=== PATIENT | female | born 1990 ===

== ENCOUNTER 2016-07-11 19:49 | Emergency (ER) | payer MEDICAID ==
[2016-07-11 19:50] VITALS: BMI 35.9
[2016-07-11 19:58] VITALS: BP 121/52; PULSE 91; RESP 16; TEMP 98; O2SAT 100
[2016-07-11 20:54] LABS: BASO # 0.1 K/uL (0.0-0.2); BASO % 0.7 % (0.0-2.0); EOS # 0.1 K/uL (0.0-0.7); EOS % 1.4 % (0.0-4.0); HEMATOCRIT 37.5 % (34.0-47.0); LYMPH # 2.2 K/uL (1.0-4.3); LYMPH % 25.6 % (20.0-40.0); MEAN CELL VOLUME 86.7 fl (81.0-99.0); MEAN CORPUSCULAR HEMOGLOBIN 28.2 pg (27.0-31.0); MEAN CORPUSCULAR HGB CONC 32.6 g/dL (33.0-37.0); MEAN PLATELET VOLUME 9.1 fl (7.2-11.7); MONO # 0.7 K/uL (0.0-0.8); MONO % 8.4 % (0.0-10.0); NEUT # 5.4 K/uL (1.8-7.0); NEUT % 63.9 % (50.0-75.0); WHITE BLOOD COUNT 8.4 K/uL (4.8-10.8)
[2016-07-11 20:57] LABS: RBC URINE 2 /hpf (0-3); URINE BILIRUBIN NEGATIVE (NEGATIVE); URINE BLOOD NEGATIVE (NEGATIVE); URINE COLOR YELLOW (YELLOW); URINE GLUCOSE (UA) NEG (Normal); URINE KETONE NEGATIVE (NEGATIVE); URINE LEUKOCYTE ESTERASE NEG Leu/uL (Negative); URINE PROTEIN NEGATIVE (NEGATIVE); URINE UROBILINOGEN 0.2-1.0 mg/dL (0.2-1.0); WBC URINE 2 /hpf (0-5)
[2016-07-11 21:03] LABS: ALB/GLOB RATIO 1.1 (1.0-2.1); ALKALINE PHOSPHATASE 80 U/L (38-126); ALT/SGPT 30 U/L (9-52); AST/SGOT 42 U/L (14-36); BILIRUBIN,TOTAL 0.9 mg/dl (0.2-1.3); BLOOD UREA NITROGEN 15 mg/dl (7-17); CALCIUM 9.2 mg/dL (8.4-10.2); CARBON DIOXIDE 20 mmol/L (22-30); CHLORIDE 105 mmol/L (98-107); GFR AFRICAN-AMERICAN > 60; GLUCOSE,RANDOM 94 mg/dL (65-105); POTASSIUM 4.4 MMOL/L (3.6-5.0); SODIUM 140 mmol/l (132-148); TOTAL PROTEIN 7.6 G/DL (6.3-8.2)
--- NOTE | 2016-07-11 21:58 | ED PDOC ---
HPI: Abdomen Time Seen by Provider: 07/11/16 20:03 Chief Complaint (Nursing): Abdominal Pain Chief Complaint (Provider): Abdominal Pain History Per: Patient History/Exam Limitations: no limitations Onset/Duration Of Symptoms: Days (2) Current Symptoms Are (Timing): Still Present Severity: Moderate Quality Of Discomfort: "Pain" Additional Complaint(s): Loree Harrington is a 25 y/o female, with a past medical history of pre-Diabetes Mellitus and (;P:1;EGA-4 weeks), presenting to the ER on 07/11/2016 with complaints of abdominal pain x2 days. Patient reports taking a home- test two days ago, which was found to be positive for . Pain, localized to her lower abdomen with radiation to her lower back, is associated with nausea. Patient denies any vomiting, diarrhea, fever, cough, urinary symptoms, vaginal bleeding/discharge or Shortness of Breath. Of note, patient has been taking Metformin instructed by her Turn Machine Operator for her recently diagnosed pre-diabetes. Past Medical History Reviewed: Historical Data, Nursing Documentation, Vital Signs Vital Signs: Last Vital Signs Temp 98.0 F 07/11/16 19:55 Pulse 91 H 07/11/16 19:55 Resp 16 07/11/16 19:55 BP 121/52 L 07/11/16 19:55 Pulse Ox 100 07/11/16 22:01 - Medical History PMH: Arthritis, Asthma, Bipolar Disorder, Depression, Gastritis Denies: Chronic Kidney Disease Other PMH: pre-diabetes - Surgical History Surgical History: (x1) - Family History Family History: States: CAD (mom) - Social History Current smoker - smoking cessation education provided: No Ex-Smoker (has not smoked in the last 12 months): No Alcohol: None Drugs: Denies - Immunization History Hx Tetanus Toxoid Vaccination: No Hx Influenza Vaccination: No Hx Pneumococcal Vaccination: No - Home Medications Home Medications: Ambulatory Orders Medication Instructions Recorded 1 tab PO DAILY 04/11/13 Albuterol Sulfate [Albuterol 3 ml IH Q6H #100 esther 09/28/13 Sulfate 3 ml] DiphenhydrAMINE [Benadryl] 25 mg PO Q6H #20 cap 09/28/13 Prednisone 2 tab PO DAILY #10 tab 09/28/13 Albuterol HFA [Ventolin HFA 90 2 puff IH Q4H #1 puff 05/09/15 mcg/actuation (8 g)] Amoxicillin/Potassium Clav 1 tab PO TID #30 tab 05/09/15 [Augmentin 500 mg-125 mg] Methylprednisolone [Medrol Dose 4 mg PO DAILY #21 tab 05/09/15 Pack (21 tabs)] Cephalexin [Keflex] 1 tab PO Q6 #28 capsule 05/12/16 Naproxen [Naprosyn Tab] 375 mg PO Q8 PRN #21 tab 05/12/16 Sulfamethoxazole/Trimethoprim 2 tab PO BID #28 tab 05/12/16 [Bactrim DS 800 mg-160 mg] - Allergies Allergies/Adverse Reactions: Allergies Allergy/AdvReac Type Severity Reaction Status Date / Time No Known Allergies Allergy Verified 12/06/14 17:49 Review of Systems ROS Statement: Except As Marked, All Systems Reviewed And Found Negative Constitutional: Negative for: Fever Cardiovascular: Negative for: Chest Pain Respiratory: Negative for: Cough, Shortness of Breath Gastrointestinal: Positive for: Nausea, Abdominal Pain. Negative for: Vomiting , Diarrhea Genitourinary Female: Negative for: Dysuria, Frequency, Incontinence, Vaginal Discharge, Vaginal Bleeding Physical Exam - Reviewed Nursing Documentation Reviewed: Yes Vital Signs Reviewed: Yes - Physical Exam Appears: Positive for: Non-toxic, No Acute Distress Head Exam: Positive for: ATRAUMATIC, NORMOCEPHALIC Skin: Positive for: Normal Color, Warm, Dry Eye Exam: Positive for: Normal appearance, EOMI, PERRL Neck: Positive for: Normal, Painless ROM, Supple Cardiovascular/Chest: Positive for: Regular Rate, Rhythm. Negative for: Murmur Respiratory: Positive for: Normal Breath Sounds. Negative for: Respiratory Distress Gastrointestinal/Abdominal: Positive for: Normal Exam, Soft. Negative for: Tenderness, Mass, Distended, Guarding, Rebound Extremity: Positive for: Normal ROM. Negative for: Deformity Neurologic/Psych: Positive for: Alert, Oriented. Negative for: Motor/Sensory Deficits - Laboratory Results Result Diagrams: 07/11/16 20:45 07/11/16 20:45 - ECG O2 Sat by Pulse Oximetry: 100 Medical Decision Making Medical Decision Makin:03 Initial Impression- 25 y/o female with abdominal pain and early . Initial Plan- * Urine Preg * Urine Dip * Accucheck * US (OB Transvaginal ) * Reevaluation 23:47 US OB Transvaginal Results FINDINGS: Gestation: A single intrauterine gestational sac is identified, too young for dates. No pole or yolk sac is detected. Placenta/amniotic fluid: Cannot be adequately evaluated due to the early gestational age. Uterus/cervix: The uterus is retroverted, and otherwise unremarkable measuring 6.3 x 3.6 x 4.6 cm. The endometrium measures 14 mm. The cervix measures 3.3 cm. Ovaries: The right ovary is increased in size measuring 4.3 x 2.1 x 2.8 cm. A 15 mm complex cyst is detected, with otherwise benign features. The left ovary is unremarkable in size measuring 2.8 x 1.0 x 2.4 cm. A 10 mm simple parovarian cyst is detected. Normal flow is noted bilaterally. Free fluid: No free fluid. IMPRESSION: Single intrauterine gestational sac, too young for dates. Short-term followup and serial beta hCG is suggested. 23:47 Lab results reviewed. No significant abnormalities. 23:52 Upon provider reevaluation patient is feeling better, is medically stable, and requires no further treatment in the ED at this time. Patient will be discharged home. Counseling was provided and all questions were answered regarding diagnosis. 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 There is agreement to discharge plan. Return if symptoms persist or worsen. Clinical Impression: Abdominal pain during Documented by Gonzalez Haas and Aaron Robb, acting as a scribe for Jeremias Martinez MD. All medical record entries made by the Scribe were at my direction and personally dictated by me. I have reviewed the chart and agree that the record accurately reflects my personal performance of the history, physical exam, medical decision making, and the department course for this patient. I have also personally directed, reviewed, and agree with the discharge instructions and disposition. Disposition - Clinical Impression Clinical Impression: Abdominal pain during - Patient ED Disposition Is Patient to be Admitted: No - Disposition Disposition: Routine/Home Disposition Time: 23:52 Condition: STABLE Additional Instructions: Ally tomando el Metformin Sigue con whitney Ginecologo en 2 feliciano Instructions: Abdominal Pain in (ED)
--- NOTE | 2016-07-11 22:21 | US ---
EXAM: US , Transvaginal CLINICAL HISTORY: 25 years old, female; Pain; Other: Pelvic pain; Gestational age or lmp: 06/12/16; ; Additional info: Preg vag bld. Beta-hCG 498. TECHNIQUE: Real-time transvaginal obstetrical ultrasound of the maternal pelvis and a first trimester with image documentation. Transvaginal imaging was used for better evaluation of the fetus and adnexa. EXAM DATE/TIME: 07/11/2016 8:14 PM COMPARISON: No relevant prior studies available. FINDINGS: Gestation: A single intrauterine gestational sac is identified, too young for dates. No pole or yolk sac is detected. Placenta/amniotic fluid: Cannot be adequately evaluated due to the early gestational age. Uterus/cervix: The uterus is retroverted, and otherwise unremarkable measuring 6.3 x 3.6 x 4.6 cm. The endometrium measures 14 mm. The cervix measures 3.3 cm. Ovaries: The right ovary is increased in size measuring 4.3 x 2.1 x 2.8 cm. A 15 mm complex cyst is detected, with otherwise benign features. The left ovary is unremarkable in size measuring 2.8 x 1.0 x 2.4 cm. A 10 mm simple parovarian cyst is detected. Normal flow is noted bilaterally. Free fluid: No free fluid. IMPRESSION: Single intrauterine gestational sac, too young for dates. Short-term followup and serial beta hCG is suggested.
== END 2016-07-11 23:49 | disposition home or self-care (01) ==
LOC: H.ER 19:49
DX: O26.891 Other specified pregnancy related conditions, first trimester (principal); R10.2 Pelvic and perineal pain; R73.03 Prediabetes; J45.909 Unspecified asthma, uncomplicated; Z87.891 Personal history of nicotine dependence; Z86.59 Personal history of other mental and behavioral disorders

== ENCOUNTER 2017-04-18 09:50 | Emergency (ER) | payer MEDICAID, OTHER ==
--- NOTE | 2017-04-18 10:34 | ED PDOC ---
HPI: General Adult Time Seen by Provider: 04/18/17 10:29 Chief Complaint (Provider): chest pain History Per: Patient Additional Complaint(s): 26-year-old female status post 1 month ago presents to emergency department with chest pain and shortness of breath that started last night. Patient states pain is midsternal and worse with inspiration. Patient does have history of asthma but she states this does not feel at her typical asthma symptoms. She denies fever or chills, no coughing. Patient is slight nausea with no vomiting or diarrhea. Dr. Fishman Past Medical History Reviewed: Historical Data Vital Signs: Last Vital Signs Temp 97.0 F L 04/18/17 11:20 Pulse 60 04/18/17 11:30 Resp 16 04/18/17 11:20 BP 132/84 04/18/17 11:30 Pulse Ox 100 04/18/17 14:26 - Medical History PMH: Arthritis, Asthma, Bipolar Disorder, Depression, Diabetes, Gastritis, HTN - Surgical History Surgical History: (x 2) Other surgeries: tubal ligation - Family History Family History: States: CAD (mom) - Living Arrangements Living Arrangements: With Family - Social History Current smoker - smoking cessation education provided: No Alcohol: None Drugs: Denies - Home Medications Home Medications: Ambulatory Orders Medication Instructions Recorded 1 tab PO DAILY 04/11/13 Albuterol HFA [Ventolin HFA 90 2 puff IH Q4H #1 puff 05/09/15 mcg/actuation (8 g)] guaiFENesin [guaifENESIN] 200 mg PO PRN PRN 07/25/16 Albuterol HFA [Ventolin HFA 90 1 puff IH ASDIR #1 unit 04/18/17 mcg/actuation (8 g)] predniSONE [Prednisone] 20 mg PO BID #10 tab 04/18/17 - Allergies Allergies/Adverse Reactions: Allergies Allergy/AdvReac Type Severity Reaction Status Date / Time No Known Allergies Allergy Verified 07/25/16 08:22 Review of Systems ROS Statement: Except As Marked, All Systems Reviewed And Found Negative Constitutional: Negative for: Fever, Chills Cardiovascular: Positive for: Chest Pain. Negative for: Palpitations, Light Headedness Respiratory: Positive for: Shortness of Breath, SOB with Exertion, Pleuritic Pain. Negative for: Cough, Hemoptysis, Wheezing Gastrointestinal: Positive for: Nausea. Negative for: Vomiting, Abdominal Pain , Diarrhea Genitourinary Female: Negative for: Dysuria Neurological: Negative for: Headache, Dizziness Physical Exam - Reviewed Nursing Documentation Reviewed: Yes Vital Signs Reviewed: Yes - Physical Exam Appears: Positive for: Well, Non-toxic, No Acute Distress Skin: Negative for: Pallor, Rash Eye Exam: Positive for: Normal appearance Neck: Positive for: Normal Cardiovascular/Chest: Positive for: Regular Rate, Rhythm Respiratory: Positive for: Normal Breath Sounds. Negative for: Respiratory Distress Gastrointestinal/Abdominal: Positive for: Soft. Negative for: Tenderness, Distended, Guarding, Rebound Back: Negative for: L CVA Tenderness, R CVA Tenderness Extremity: Positive for: Normal ROM. Negative for: Pedal Edema, Calf Tenderness Neurologic/Psych: Positive for: Alert, Oriented - Laboratory Results Result Diagrams: 04/18/17 11:37 04/18/17 11:37 Urine POC: Negative Urine dip results: Negative for: Leukocyte Esterase, Blood, Nitrate, Ketones, Glucose, Bilirubin, Protein - ECG Interpretation Of ECG: Sinus bradycardia 58 bpm, no acute finding, reviewed by PA and ED attending - Other Rad CXR X-Ray: Interpreted by Me, Viewed By Me X-Ray Interpretation: no acute finding - CT Scan/US CT chest Other Rad Studies (CT/US): Read By Radiologist (No pulmonary embolism, no infiltrate, hiatal hernia) Nebulizer Treatments/Peak Flow - Duonebs Number of Bronchodilator Doses given?: 1 - Pre/Post Peak Flow Pre Treatment Peak Flow: 190 Post treatment Peak Flow: 320 - Steroid Treatment Steroid: Oral (rx prednisone) - Clinical Response Clinical Response: Improved Medical Decision Making Medical Decision Makin-year-old female with shortness of breath and chest pain. Plan: EKG bedside chest CMP CBC Trop D-Dimer CT chest with IV contrast IVF Duoneb x [address] chest ordered due to elevated D Dimer Patient feels much better after DuoNeb treatment. She is aware of all diagnostic tests results, all questions answered. Patient given prescriptions for Ventolin inhaler and prednisone. She was advised to follow-up with primary doctor in 2-3 days. Disposition - Clinical Impression Clinical Impression: Asthma exacerbation - Patient ED Disposition Is Patient to be Admitted: No Counseled Patient/Family Regarding: Studies Performed, Diagnosis, Need For Followup, Rx Given - Disposition Referrals: Adam Fishman MD [Family Provider] - Disposition: Routine/Home Disposition Time: 15:20 Condition: STABLE Additional Instructions: Take prescription medications as directed. Follow-up with primary doctor in 2-3 days. Prescriptions: Albuterol HFA [Ventolin HFA 90 mcg/actuation (8 g)] 1 puff IH ASDIR #1 unit predniSONE [Prednisone] 20 mg PO BID #10 tab Instructions: Asthma (ED) Results - Lab Results Lab Results: 04/18/17 04/18/17 04/18/17 12:20 11:37 11:37 WBC RBC Hgb Hct MCV MCH MCHC RDW Plt Count MPV Neut % (Auto) Lymph % (Auto) [place] % (Auto) Eos % (Auto) Baso % (Auto) Neut # Lymph # [place] # Eos # Baso # D-Dimer, Quantitative 447 H Sodium 142 Potassium 4.3 Chloride 102 Carbon Dioxide 27 Anion Gap 17 BUN 12 Creatinine 0.6 L Est GFR ( Amer) > 60 Est GFR (Non-Af Amer) > 60 Random Glucose 97 Calcium 9.5 Total Bilirubin 0.7 AST 48 H ALT 75 H D Alkaline Phosphatase 101 Troponin I 0.0140 Total Protein 7.7 Albumin 4.4 Globulin 3.3 Albumin/Globulin Ratio 1.3 Influenza Typ A,B (EIA) Negative for flu a/b 04/18/17 11:37 WBC 6.1 RBC 4.41 Hgb 11.9 L Hct 37.2 MCV 84.3 D MCH 26.9 L MCHC 31.9 L RDW 14.9 H Plt Count 301 MPV 8.9 Neut % (Auto) 77.9 H Lymph % (Auto) 14.6 L [place] % (Auto) 6.1 Eos % (Auto) 0.4 Baso % (Auto) 1.0 Neut # 4.8 Lymph # 0.9 L [place] # 0.4 Eos # 0.0 Baso # 0.1 D-Dimer, Quantitative Sodium Potassium Chloride Carbon Dioxide Anion Gap BUN Creatinine Est GFR ( Amer) Est GFR (Non-Af Amer) Random Glucose Calcium Total Bilirubin AST ALT Alkaline Phosphatase Troponin I Total Protein Albumin Globulin Albumin/Globulin Ratio Influenza Typ A,B (EIA)
[2017-04-18 10:53] VITALS: BMI 36.3
[2017-04-18] MEDS ORDERED: Sodium Chloride 0.9% 1,000 ML IV STA (10:53)
[2017-04-18] MEDS ORDERED: Albuterol-Ipratrop 3 mg / 0.5 (3 ml) UD INH STA (10:53)
[2017-04-18 11:44] VITALS: TEMP 97; O2SAT 100
[2017-04-18 11:47] LABS: BASO # 0.1 K/uL (0.0-0.2); EOS % 0.4 % (0.0-4.0); HEMOGLOBIN 11.9 g/dL (12.0-16.0); LYMPH # 0.9 K/uL (1.0-4.3); LYMPH % 14.6 % (20.0-40.0); MEAN CELL VOLUME 84.3 fl (81.0-99.0); MEAN CORPUSCULAR HEMOGLOBIN 26.9 pg (27.0-31.0); MEAN CORPUSCULAR HGB CONC 31.9 g/dL (33.0-37.0); MEAN PLATELET VOLUME 8.9 fl (7.2-11.7); MONO # 0.4 K/uL (0.0-0.8); MONO % 6.1 % (0.0-10.0); NEUT # 4.8 K/uL (1.8-7.0); NEUT % 77.9 % (50.0-75.0); RBC 4.41 Mil/uL (3.80-5.20); RED CELL DISTRIBUTION WIDTH 14.9 % (11.5-14.5); WHITE BLOOD COUNT 6.1 K/uL (4.8-10.8)
[2017-04-18] MEDS ORDERED: Albuterol-Ipratrop 3 mg / 0.5 (3 ml) UD ONE (11:50)
[2017-04-18 11:52] LABS: ALB/GLOB RATIO 1.3 (1.0-2.1); ALBUMIN 4.4 g/dL (3.5-5.0); ALT/SGPT 75 U/L (9-52); AST/SGOT 48 U/L (14-36); BLOOD UREA NITROGEN 12 mg/dl (7-17); CALCIUM 9.5 mg/dL (8.4-10.2); GFR AFRICAN-AMERICAN > 60; GFR NON-AFRICAN AMERICAN > 60
[2017-04-18] MEDS ORDERED: Sodium Chloride 0.9% 50 ML IV ONE (13:47)
[2017-04-18] MEDS ORDERED: Iodixanol 320 MG/ML 100 ML BOTTLE IV ONE (13:47)
--- NOTE | 2017-04-18 14:31 | RAD ---
HISTORY: Shortness of breath. COMPARISON: 05/09/2015. FINDINGS: LUNGS: No active pulmonary disease. PLEURA: No significant pleural effusion identified, no pneumothorax apparent. CARDIOVASCULAR: Normal. OSSEOUS STRUCTURES: No significant abnormalities. VISUALIZED UPPER ABDOMEN: Normal. OTHER FINDINGS: None. IMPRESSION: No active disease. No significant interval change compared to the prior examination(s). Concordant results with the preliminary interpretation rendered by the emergency department physician procedure.
--- NOTE | 2017-04-18 14:55 | CT ---
PROCEDURE: CT Chest with contrast (Pulmonary Angiogram) HISTORY: chest pain, SOB COMPARISON: None available. TECHNIQUE: Axial computed tomography images were obtained of the chest in the pulmonary arterial phase of enhancement. Coronal and sagittal reformatted images were created and reviewed. Intravenous contrast dose: Visipaque 320, a 79 cc Radiation dose: Total exam DLP = 439.34 mGy-cm. This CT exam was performed using one or more of the following dose reduction techniques: Automated exposure control, adjustment of the mA and/or kV according to patient size, and/or use of iterative reconstruction technique. FINDINGS: PULMONARY ARTERIES: Unremarkable. No pulmonary embolism. AORTA: No acute findings. No thoracic aortic aneurysm. LUNGS: Unremarkable. No nodule, mass or pulmonary consolidation. PLEURAL SPACES: Unremarkable. No effusion or pneuomothorax. HEART: Unremarkable. No cardiomegaly. No significant pericardial effusion. LYMPH NODES: No lymphadenopathy. BONES, CHEST WALL: Unremarkable. No fracture or destructive lesion OTHER FINDINGS: [id number] hiatal hernia identified. IMPRESSION: Unremarkable CT pulmonary angiogram. No pulmonary embolus, pulmonary infiltrate, pneumothorax, pleural or pericardial effusion or definitive pulmonary mass identified.
[2017-04-18 15:52] VITALS: BP 124/81; PULSE 73; RESP 15
== END 2017-04-18 15:51 | disposition home or self-care (01) ==
LOC: H.ER 09:50
DX: J45.901 Unspecified asthma with (acute) exacerbation (principal); E11.9 Type 2 diabetes mellitus without complications; F31.9 Bipolar disorder, unspecified; I10 Essential (primary) hypertension
CPT/HCPCS: 71045; 71275; 80053; 81025; 84484; 85025; 85378; 87804; 94150; 94640; 96360; 99285; J7040; Q9967

== ENCOUNTER 2018-02-14 00:44 | Emergency (ER) | payer MEDICAID, OTHER ==
[2018-02-14 00:44] VITALS: BMI 36.3
[2018-02-14] MEDS ORDERED: Sodium Chloride 0.9% 1,000 ML IV STA (01:19)
--- NOTE | 2018-02-14 01:25 | ED PDOC ---
HPI:Nausea, Vomiting, Diarrhea Time Seen by Provider: 02/14/18 01:15 Chief Complaint (Nursing): Abdominal Pain Chief Complaint (Provider): vomiting History Per: Patient History/Exam Limitations: no limitations Onset/Duration Of Symptoms: Hrs (9) Current Symptoms Are (Timing): Still Present Additional Complaint(s): 27 y/o female presents for evaluation of 14-15 episodes of vomiting x 9 hours. Associated one episode of water diarrhea. Denies fever, cough, congestion, chest pain, shortness of breath, palpitations, urinary symptoms, recent travel. Past Medical History Reviewed: Historical Data, Nursing Documentation, Vital Signs Vital Signs: Last Vital Signs Temp 98.5 F 02/14/18 00:53 Pulse 100 H 02/14/18 00:53 Resp 17 02/14/18 00:53 BP 113/77 02/14/18 00:53 Pulse Ox 98 02/14/18 00:53 - Medical History PMH: Arthritis, Asthma, Bipolar Disorder, Depression, Diabetes, Gastritis, HTN Denies: Chronic Kidney Disease - Surgical History Surgical History: (x 2) - Family History Family History: States: CAD (mom) - Immunization History Hx Tetanus Toxoid Vaccination: No Hx Influenza Vaccination: No Hx Pneumococcal Vaccination: No - Home Medications Home Medications: Ambulatory Orders Medication Instructions Recorded Naproxen 375 mg PO TIDPC #20 tablet 01/05/18 Famotidine [Pepcid] 20 mg PO BID #10 tab 02/14/18 Ondansetron ODT [Zofran ODT] 4 mg PO Q8 PRN #10 odt 02/14/18 - Allergies Allergies/Adverse Reactions: Allergies Allergy/AdvReac Type Severity Reaction Status Date / Time No Known Allergies Allergy Verified 02/14/18 00:56 Review of Systems ROS Statement: Except As Marked, All Systems Reviewed And Found Negative Gastrointestinal: Positive for: Nausea, Vomiting, Abdominal Pain, Diarrhea Physical Exam - Reviewed Nursing Documentation Reviewed: Yes Vital Signs Reviewed: Yes - Physical Exam Appears: Positive for: Well, Non-toxic, Uncomfortable Head Exam: Positive for: ATRAUMATIC, NORMAL INSPECTION, NORMOCEPHALIC Skin: Positive for: Normal Color Eye Exam: Positive for: Normal appearance ENT: Positive for: Normal ENT Inspection Cardiovascular/Chest: Positive for: Regular Rate, Rhythm Respiratory: Positive for: Normal Breath Sounds Gastrointestinal/Abdominal: Positive for: Bowel Sounds, Soft, Tenderness (epigastric) Back: Positive for: Normal Inspection Extremity: Positive for: Normal ROM Neurologic/Psych: Positive for: Alert, Oriented (x3) - Laboratory Results Result Diagrams: 02/14/18 01:37 02/14/18 01:37 - ECG O2 Sat by Pulse Oximetry: 98 - Progress ED Course And Treament: -cbc -cmp -lipase -urinalysis -IV NS bolus -IV zofran -IV pepcid On re-eval, patient states she is feeling better. Tolerated PO Patient educated on findings, discharged with rx Zofran, Pepcid Advised follow up PMD within 2-3 days Fluids. [place] diet Return precautions given Disposition - Clinical Impression Clinical Impression: Gastroenteritis - Patient ED Disposition Is Patient to be Admitted: No Counseled Patient/Family Regarding: Studies Performed, Diagnosis, Need For Followup, Rx Given - Disposition Disposition: Routine/Home Disposition Time: 04:45 Condition: IMPROVED Prescriptions: Famotidine [Pepcid] 20 mg PO BID #10 tab Ondansetron ODT [Zofran ODT] 4 mg PO Q8 PRN #10 odt PRN Reason: Nausea/Vomiting Instructions: Gastroenteritis (ED) Forms: [employer] (Croatian) Print Language: KHMER
[2018-02-14 01:51] LABS: BASO % 0.2 % (0.0-2.0); EOS % 0.4 % (0.0-4.0); HEMOGLOBIN 12.6 g/dL (12.0-16.0); LYMPH # 0.5 K/uL (1.0-4.3); MEAN CELL VOLUME 85.1 fl (81.0-99.0); MEAN CORPUSCULAR HEMOGLOBIN 27.5 pg (27.0-31.0); MEAN CORPUSCULAR HGB CONC 32.3 g/dL (33.0-37.0); MEAN PLATELET VOLUME 8.9 fl (7.2-11.7); MONO # 0.4 K/uL (0.0-0.8); NEUT # 7.7 K/uL (1.8-7.0); NEUT % 88.4 % (50.0-75.0); PLATELET COUNT 299 K/uL (130-400); RBC 4.59 Mil/uL (3.80-5.20); RED CELL DISTRIBUTION WIDTH 14.4 % (11.5-14.5); WHITE BLOOD COUNT 8.7 K/uL (4.8-10.8)
[2018-02-14 02:08] LABS: SQUAMOUS EPITHIAL 4 /hpf (0-5); URINE BILIRUBIN NEGATIVE (NEGATIVE); URINE BLOOD SMALL (NEGATIVE); URINE CLARITY SLIGHTY-CLOUDY (Clear); URINE COLOR YELLOW (YELLOW); URINE GLUCOSE (UA) NEG (Normal); URINE LEUKOCYTE ESTERASE NEG Leu/uL (Negative); URINE PROTEIN NEGATIVE (NEGATIVE); URINE UROBILINOGEN 0.2-1.0 mg/dL (0.2-1.0)
[2018-02-14 02:09] LABS: ALB/GLOB RATIO 1.3 (1.0-2.1); ALBUMIN 4.3 g/dL (3.5-5.0); ALT/SGPT 32 U/L (9-52); AST/SGOT 34 U/L (14-36); BLOOD UREA NITROGEN 20 mg/dl (7-17); CALCIUM 8.9 mg/dL (8.4-10.2); GFR NON-AFRICAN AMERICAN > 60; LIPASE 38 U/L (23-300)
[2018-02-14 03:39] LABS: BANDS 1 % (0-2); LYMPHOCYTE 8 % (20-50); MONOCYTE 3 % (0-10); NEUTROPHIL 88 % (42-75); PLATELET ESTIMATE NORMAL (NORMAL); TOTAL CELLS COUNTED 100
[2018-02-14 03:40] LABS: LARGE PLATELETS PRESENT; TOXIC GRANULATION PRESENT
[2018-02-14 06:23] VITALS: BP 125/79; PULSE 97; RESP 18; TEMP 99.2
[2018-02-14 06:24] VITALS: O2SAT 100
== END 2018-02-14 04:25 | disposition home or self-care (01) ==
LOC: H.ER 00:44
DX: K52.9 Noninfective gastroenteritis and colitis, unspecified (principal); E11.9 Type 2 diabetes mellitus without complications; I10 Essential (primary) hypertension
CPT/HCPCS: 80053; 81003; 83690; 85025; 96374; 99283; J2405; J7030

== ENCOUNTER 2018-04-02 12:28 | Emergency (ER) | payer MEDICAID ==
[2018-04-02 12:28] VITALS: BMI 36.3
[2018-04-02 12:43] VITALS: BP 120/83; PULSE 99; RESP 19; TEMP 98.6; O2SAT 100
--- NOTE | 2018-04-02 13:18 | ED PDOC ---
HPI: Influenza Time Seen by Provider: 04/02/18 12:51 Chief Complaint: Flu-like Symptoms Chief Complaint (Provider): Flu-like symptoms History Per: Patient Exam Limitations: no limitations Onset/Duration Of Symptoms: Days (x2) Symptoms include: bodyaches, sore throat, nasal congestion Additional complaint(s):: 27 year old female presents to the ED complaining of flu like symptoms. Patient reports symptoms started yesterday with nasal congestion, bodyache, sore throat, and mild headache. She states she has a history of asthma, but she's had no cough or wheeze with her above symptoms, she has albuterol at home. Patient denies taking medications for symptoms. PMD: Adam Taylor Past Medical History Reviewed: Historical Data, Nursing Documentation, Vital Signs Vital Signs: Last Vital Signs Temp 98.6 F 04/02/18 12:41 Pulse 99 H 04/02/18 12:41 Resp 19 04/02/18 12:41 BP 120/83 04/02/18 12:41 Pulse Ox 100 04/02/18 12:41 - Medical History PMH: Arthritis, Asthma, Bipolar Disorder, Depression, Diabetes, Gastritis, HTN Denies: Chronic Kidney Disease - Surgical History Surgical History: (x 2) - Family History Family History: States: CAD (mom) - Immunization History Hx Tetanus Toxoid Vaccination: No Hx Influenza Vaccination: No Hx Pneumococcal Vaccination: No - Home Medications Home Medications: Ambulatory Orders Medication Instructions Recorded Naproxen 375 mg PO TIDPC #20 tablet 01/05/18 Famotidine [Pepcid] 20 mg PO BID #10 tab 02/14/18 Ondansetron ODT [Zofran ODT] 4 mg PO Q8 PRN #10 odt 02/14/18 Ibuprofen [Motrin Tab] 600 mg PO TID 5 Days tab 04/02/18 - Allergies Allergies/Adverse Reactions: Allergies Allergy/AdvReac Type Severity Reaction Status Date / Time No Known Allergies Allergy Verified 02/14/18 00:56 Review of Systems ROS Statement: Except As Marked, All Systems Reviewed And Found Negative Constitutional: Positive for: Other (Bodyache) ENT: Positive for: Nose Congestion, Throat Pain (sore throat) Respiratory: Negative for: Cough, Wheezing Neurological: Positive for: Headache (mild) Physical Exam - Reviewed Nursing Documentation Reviewed: Yes Vital Signs Reviewed: Yes - Physical Exam Appears: Positive for: Non-toxic, No Acute Distress Head Exam: Positive for: ATRAUMATIC, NORMOCEPHALIC Skin: Positive for: Normal Color, Warm, Dry Eye Exam: Positive for: Normal appearance ENT: Positive for: TM Is/Are (normal), Nasal Congestion, Pharyngeal Erythema Neck: Positive for: Normal, Painless ROM Cardiovascular/Chest: Positive for: Regular Rate, Rhythm Respiratory: Positive for: Normal Breath Sounds. Negative for: Wheezing, Respiratory Distress Gastrointestinal/Abdominal: Positive for: Normal Exam, Soft. Negative for: Tenderness Extremity: Positive for: Normal ROM Neurologic/Psych: Positive for: Alert, Oriented. Negative for: Motor/Sensory Deficits Medical Decision Making Medical Decision Making: Initial Plan: --ED urine --ED urine dipstick --Motrin 600mg PO --Influenza A B stat --Rapid strep stat U.dip Neg U.preg Neg Flu/Strep: neg Pt. well appearing, tolerating po, lungs clear with repeat hr 80. Scribe Attestation: Documented by Kris Vann acting as a scribe for Yuridia HARRIS. Provider Scribe Attestation: All medical record entries made by the Scribe were at my direction and personally dictated by me. I have reviewed the chart and agree that the record accurately reflects my personal performance of the history, physical exam, medical decision making, and the department course for this patient. I have also personally directed, reviewed, and agree with the discharge instructions and disposition. - ECG O2 Sat by Pulse Oximetry: 100 Disposition - Clinical Impression Clinical Impression: Influenza-like symptoms - Patient ED Disposition Is Patient to be Admitted: No Counseled Patient/Family Regarding: Studies Performed, Diagnosis, Need For Followup, Rx Given - Disposition Referrals: [facility] [Outside] Disposition: Routine/Home Disposition Time: 14:14 Condition: STABLE Prescriptions: Ibuprofen [Motrin Tab] 600 mg PO TID 5 Days tab Instructions: Cough, Runny Nose, and the Common Cold (DC) Forms: [employer] (Irish)
== END 2018-04-02 14:22 | disposition home or self-care (01) ==
LOC: H.ER 12:28
DX: J11.1 Influenza due to unidentified influenza virus with other respiratory manifestations (principal); E11.9 Type 2 diabetes mellitus without complications; I10 Essential (primary) hypertension

== ENCOUNTER 2018-05-20 20:37 | Emergency (ER) | payer MEDICAID ==
[2018-05-20 20:37] VITALS: BMI 36.3
[2018-05-20 20:49] VITALS: RESP 18; O2SAT 100
[2018-05-20] MEDS ORDERED: Sodium Chloride 0.9% 1,000 ML IV STA (20:52)
[2018-05-20 21:18] LABS: SQUAMOUS EPITHIAL 4 /hpf (0-5); URINE BACTERIA RARE (<OCC); URINE BILIRUBIN NEGATIVE (NEGATIVE); URINE BLOOD NEGATIVE (NEGATIVE); URINE CLARITY SLIGHTY-CLOUDY (Clear); URINE COLOR YELLOW (YELLOW); URINE GLUCOSE (UA) NEG (NEGATIVE); URINE LEUKOCYTE ESTERASE NEG Leu/uL (Negative); URINE PROTEIN NEGATIVE (NEGATIVE); URINE UROBILINOGEN 0.2-1.0 mg/dL (0.2-1.0)
[2018-05-20 21:21] LABS: BASO # 0.1 K/uL (0.0-0.2); BASO % 0.9 % (0.0-2.0); EOS # 0.1 K/uL (0.0-0.7); EOS % 1.9 % (0.0-4.0); HEMOGLOBIN 11.8 g/dL (12.0-16.0); LYMPH % 30.4 % (20.0-40.0); MEAN CELL VOLUME 83.9 fl (81.0-99.0); MEAN CORPUSCULAR HEMOGLOBIN 27.6 pg (27.0-31.0); MEAN CORPUSCULAR HGB CONC 32.8 g/dL (33.0-37.0); MEAN PLATELET VOLUME 8.7 fl (7.2-11.7); MONO # 0.5 K/uL (0.0-0.8); MONO % 8.1 % (0.0-10.0); NEUT # 3.8 K/uL (1.8-7.0); NEUT % 58.7 % (50.0-75.0); NRBC % 0.3 % (0.0-0.0); RBC 4.3 Mil/uL (3.80-5.20); RED CELL DISTRIBUTION WIDTH 14.5 % (11.5-14.5); WHITE BLOOD COUNT 6.4 K/uL (4.8-10.8)
[2018-05-20 21:31] LABS: ALB/GLOB RATIO 1.2 (1.0-2.1); ALT/SGPT 37 U/L (9-52); AST/SGOT 32 U/L (14-36); BLOOD UREA NITROGEN 17 mg/dl (7-17); CALCIUM 9.1 mg/dL (8.4-10.2); GFR NON-AFRICAN AMERICAN > 60
--- NOTE | 2018-05-20 22:00 | ED PDOC ---
HPI: Headache Time Seen by Provider: 05/20/18 20:48 Chief Complaint (Nursing): Headache Chief Complaint (Provider): Headache History Per: Patient History/Exam Limitations: no limitations Onset/Duration Of Symptoms: Days Current Symptoms Are (Timing): Still Present Additional Complaint(s): 27 y/o female with no significant PMHx presents to the ED for evaluatio n of a left sided headache, onset three days ago. Patient reports headache is associated with sensitivity to the left side of her teeth, starting earlier today. Patient states pain worsens with mastication. Patient reports of having multiple dental carries. Denies fever. PMD: Adam Fishman Past Medical History Reviewed: Historical Data, Nursing Documentation, Vital Signs Vital Signs: Last Vital Signs Temp 98.6 F 05/20/18 20:47 Pulse 83 05/20/18 20:47 Resp 18 05/20/18 20:47 BP 148/96 H 05/20/18 20:47 Pulse Ox 100 05/20/18 20:47 - Medical History PMH: Arthritis, Asthma, Bipolar Disorder, Depression, Diabetes, Gastritis, Gall Bladder Disease, HTN (pt denies) Denies: Chronic Kidney Disease - Surgical History Surgical History: Cholecystectomy, (x 2) Other surgeries: tubal ligation - Family History Family History: States: CAD (mom) - Social History Current smoker - smoking cessation education provided: No Alcohol: None Drugs: Denies - Immunization History Hx Tetanus Toxoid Vaccination: No Hx Influenza Vaccination: No Hx Pneumococcal Vaccination: No - Home Medications Home Medications: Ambulatory Orders Medication Instructions Recorded Naproxen 375 mg PO TIDPC #20 tablet 01/05/18 Famotidine [Pepcid] 20 mg PO BID #10 tab 02/14/18 Ondansetron ODT [Zofran ODT] 4 mg PO Q8 PRN #10 odt 02/14/18 Ibuprofen [Motrin Tab] 600 mg PO TID 5 Days tab 04/02/18 Acetaminophen/Butalbital/Caf 1 - 2 tab PO Q6 PRN #10 tab 05/20/18 [Fioricet] Amoxicillin/Clavulanate [Augmentin 1 tab PO BID #14 tab 05/20/18 875 MG-125 MG] - Allergies Allergies/Adverse Reactions: Allergies Allergy/AdvReac Type Severity Reaction Status Date / Time No Known Allergies Allergy Verified 02/14/18 00:56 Review of Systems ROS Statement: Except As Marked, All Systems Reviewed And Found Negative ENT: Positive for: Other (sensitivity to the teeth) Psych: Positive for: Psychosis Physical Exam - Reviewed Nursing Documentation Reviewed: Yes Vital Signs Reviewed: Yes - Physical Exam Appears: Positive for: Uncomfortable Head Exam: Positive for: ATRAUMATIC, NORMOCEPHALIC Skin: Positive for: Normal Color, Warm, Dry Eye Exam: Positive for: Normal appearance, EOMI, PERRL ENT: Positive for: Other (multiple dental carries noted. Sensitivity to the left upper molars. ) Neck: Negative for: Normal (Left sided cervical adenopathy anteriorly ) Cardiovascular/Chest: Positive for: Regular Rate, Rhythm. Negative for: Murmur Respiratory: Positive for: Normal Breath Sounds. Negative for: Respiratory Distress Gastrointestinal/Abdominal: Positive for: Normal Exam, Soft. Negative for: Tenderness Extremity: Positive for: Normal ROM Neurologic/Psych: Positive for: Alert, Oriented. Negative for: Motor/Sensory Deficits - Laboratory Results Result Diagrams: 05/20/18 21:00 05/20/18 21:00 Lab Results: Total Bilirubin 0.3 mg/dl (0.2-1.3) 05/20/18 21:00 AST 32 U/L (14-36) 05/20/18 21:00 ALT 37 U/L (9-52) 05/20/18 21:00 Alkaline Phosphatase 90 U/L (38-126) 05/20/18 21:00 Total Protein 7.2 G/DL (6.3-8.2) 05/20/18 21:00 Albumin 4.0 g/dL (3.5-5.0) 05/20/18 21:00 Globulin 3.2 gm/dL (2.2-3.9) 05/20/18 21:00 Albumin/Globulin Ratio 1.2 (1.0-2.1) 05/20/18 21:00 Urine Color Yellow (YELLOW) 05/20/18 21:00 Urine Clarity Slighty-cloudy (Clear) 05/20/18 21:00 Urine pH 7.0 (5.0-8.0) 05/20/18 21:00 Ur Specific [place] 1.026 (1.003-1.030) 05/20/18 21:00 Urine Protein Negative mg/dL (NEGATIVE) 05/20/18 21:00 Urine Glucose (UA) Neg mg/dL (NEGATIVE) 05/20/18 21:00 Urine Ketones Negative mg/dL (NEGATIVE) 05/20/18 21:00 Urine Blood Negative (NEGATIVE) 05/20/18 21:00 Urine Nitrate Negative (NEGATIVE) 05/20/18 21:00 Urine Bilirubin Negative (NEGATIVE) 05/20/18 21:00 Urine Urobilinogen 0.2-1.0 mg/dL (0.2-1.0) 05/20/18 21:00 Ur Leukocyte Esterase Neg Jim/uL (Negative) 05/20/18 21:00 Urine RBC (Auto) 3 /hpf (0-3) 05/20/18 21:00 Urine Microscopic WBC 3 /hpf (0-5) 05/20/18 21:00 Ur Squamous Epith Cells 4 /hpf (0-5) 05/20/18 21:00 Urine Bacteria Rare (<OCC) 05/20/18 21:00 - ECG O2 Sat by Pulse Oximetry: 100 (RA) Pulse Ox Interpretation: Normal Medical Decision Making Medical Decision Making: Time: 2101 Impression: 27 y/o female presenting with headache insetting of dental carries. Plan: -- CMP -- ED Urine -- ED Urine Dipstick -- CBC with Differentials -- Sodium Chloride IV 1000 mls/hr -- Reglan 10 mg IVPB -- Toradol 30 mg IV -- Heplock Insertion -- Urinalysis Time: 2158 CT RESULTS FINDINGS: BRAIN No acute intraparenchymal hemorrhage. No mass lesion. No CT evidence for acute territorial infarct. No midline shift or extra-axial collections. VENTRICLES: No hydrocephalus. ORBITS: The orbits are unremarkable. SINUSES AND MASTOIDS: Bilateral ethmoid and left maxillary sinusitis. The mastoid air cells are clear. BONES: No fracture. SOFT TISSUES: Unremarkable. IMPRESSION: Sinusitis. No acute intracranial abnormality. Electronically signed on May 20, 2018 9:59:30 PM EST by: Nick Grant M.D., RAMANDEEP Certified By [facility] Trained [facility] and CT Specialist 23:40 Patient reports improvement of symptoms and is stable for discharge. Diagnoses are sinusitis and sinus headache. Return precautions provided. Scribe Attestation: Documented by Eula Kerns, acting as a scribe for Jeremias Martinez MD. Provider Scribe Attestation: All medical record entries made by the Scribe were at my direction and personally dictated by me. I have reviewed the chart and agree that the record accurately reflects my personal performance of the history, physical exam, me dical decision making, and the department course for this patient. I have also personally directed, reviewed, and agree with the discharge instructions and disposition. Disposition - Clinical Impression Clinical Impression: Sinusitis, Headache - Disposition Disposition: Routine/Home Disposition Time: 23:40 Condition: STABLE Prescriptions: Acetaminophen/Butalbital/Caf [Fioricet] 1 - 2 tab PO Q6 PRN #10 tab PRN Reason: Headache Amoxicillin/Clavulanate [Augmentin 875 MG-125 MG] 1 tab PO BID #14 tab Instructions: Sinusitis in Adults, Sinus Headache (DC) Forms: [facility] (Kenyan) Print Language: KHMER
[2018-05-20 23:49] VITALS: BP 118/65; PULSE 80; TEMP 98.1
--- NOTE | 2018-05-21 10:05 | CT ---
Date of service: 05/20/2018 PROCEDURE: CT HEAD WITHOUT CONTRAST. HISTORY: headache COMPARISON: None available. TECHNIQUE: Axial computed tomography images were obtained through the head/brain without intravenous contrast. Supplemental Coronal and Sagittal projections created and reviewed. Radiation dose: Total exam DLP = <inf_radiation_dlp> mGy-cm. This CT exam was performed using one or more of the following dose reduction techniques: Automated exposure control, adjustment of the mA and/or kV according to patient size, and/or use of iterative reconstruction technique. FINDINGS: HEMORRHAGE: No intracranial hemorrhage. BRAIN: No mass effect or edema. No atrophy or chronic microvascular ischemic changes. VENTRICLES: Unremarkable. No hydrocephalus. CALVARIUM: Unremarkable. PARANASAL SINUSES: Chronic ethmoid and left maxillary sinus disease. MASTOID AIR CELLS: Unremarkable as visualized. No inflammatory changes. OTHER FINDINGS: None. IMPRESSION: No acute intracranial abnormalities. No significant findings to account for the clinical presentation. Concordant results (preliminary interpretation) provided by [employer]. Procedure Completed: 21:49 Preliminary Report: Interpreted and electronically signed: 21:59. Final Interpretation: 10:01. May 21, 2018
== END 2018-05-20 23:49 | disposition home or self-care (01) ==
LOC: H.ER 20:37
DX: J32.9 Chronic sinusitis, unspecified (principal); R51 Headache; I10 Essential (primary) hypertension; J45.909 Unspecified asthma, uncomplicated; K02.9 Dental caries, unspecified; Z87.19 Personal history of other diseases of the digestive system
CPT/HCPCS: 70450; 80053; 81003; 81025; 85025; 96360; 99285; J1885; J2765; J7030